=== PATIENT | male | born 1985 ===

== ENCOUNTER 2021-11-16 12:52 | Emergency (ER) | payer SELFPAY ==
[~2021-11-16] VITALS: Ht 165.1 cm; Wt 68.0 kg
--- NOTE | 2021-11-16 13:43 | ED Lower Extremity ---
General Chief Complaint: Lower Extremity Stated Complaint: R LEG PAIN Nursing Triage Note: PT AMB TO [facility] WITH COMPLAINT OF RIGHT GROIN/THIGH PAIN. PT IS ALSO COMPLAINING OF RASH Source: patient, family Exam Limitations: language barrier History of Present Illness Date Seen by Provider: Nov 16, 2021 Time Seen by Provider: 13:42 Initial Comments Patient is a 36-year-old male who is speaking presents ED with right leg pain. Leg pain right hip to right thigh and posterior leg. Started last Tuesday. 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 No specific trauma. No redness or bruising. Also reports rectal pain for the past few weeks. History of constipation. Pain with bowel movement but is having bowel movements. Denies any vomiting, abdominal pain, dysuria, hematuria, fever, chills. Denies taking pain for his leg pain. Allergies and Home Medications Patient Home Medication List Home Medication List Reviewed: Yes Cyclobenzaprine HCl (Cyclobenzaprine HCl) 10 Mg Tablet, 10 MG PO TID PRN for MUSCLE SPASMS Prescribed by: ALEXANDRA HUI on 11/16/211447 Docusate Sodium (Dulcolax Stool Softener) 100 Mg Capsule, 200 MG PO DAILY PRN for CONSTIPATION-1ST LINE Prescribed by: ALEXANDRA HUI on 11/16/21 144 Hydrocortisone (Anusol-Hc) 30 Gm Cream..g., 30 GM RC TID Prescribed by: ALEXANDRA HUI on 11/16/21 144 Naproxen (Naproxen) 500 Mg Tablet.dr, 500 MG PO BID Prescribed by: ALEXANDRA HUI on 11/16/21 1448 Review of Systems Constitutional: No chills, No diaphoresis, No fever, No malaise EENTM: No ear discharge, No hearing loss, No vision loss, No mouth pain Respiratory: No cough, No dyspnea on exertion Cardiovascular: No chest pain Gastrointestinal: No abdominal pain; constipation; No diarrhea, No nausea, No vomiting Genitourinary: No decreased output, No discharge Musculoskeletal: No back pain; joint pain, muscle pain Skin: No change in color, No change in hair/nails All Other Systems Reviewed Negative Unless Noted: Yes Past Tbjphpd-Dicgwx-Pzpran Hx Patient Social History Tobacco Use?: Yes Tobacco type used: Cigarettes Smoking Status: Current Everyday Smoker Use of E-Cig and/or Vaping dev: No Substance use?: No Alcohol Use?: No Pt feels they are or have been: No Immunizations Up To Date Influenza Vaccine Up-to-Date: Yes; Up-to-Date First/Initial COVID19 Vaccinat: 2020 Second COVID19 Vaccination Harris: 2020 Physical Exam Vital Signs Vital Signs - First Documented 11/16/21 13:19 Pulse 65 Resp 16 B/P (MAP) 138/81 (100) Pulse Ox 99 O2 Delivery Room Air Capillary Refill : Less Than 3 Seconds Height, Weight, BMI Height: '" Weight: lbs. oz. kg; 24.00 BMI Method: General Appearance: WD/WN, no apparent distress HEENT: PERRL/EOMI, normal ENT inspection, TMs normal, pharynx normal Neck: non-tender, full range of motion, supple Cardiovascular: regular rate, rhythm, no edema, no gallop, no JVD Respiratory: chest non-tender, lungs clear, normal breath sounds, no respiratory distress Gastrointestinal: normal bowel sounds, non tender, soft, no organomegaly, other (Nonthrombosed hemorrhoids noted to the anus) Hips: bilateral hip no evidence of injury; right hip bone tenderness, right hip pain Legs: right leg bone tenderness, right leg soft tissue tenderness Knees: bilateral knee non-tender, bilateral knee normal inspection, bilateral knee normal range of motion Ankles: bilateral ankle non-tender, bilateral ankle normal inspection, bilateral ankle normal range of motion Neurologic/Psychiatric: 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 Symptoms started last Arabella. 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 Reports strenuous activity. Denies of any falls. Reports some cramping pain, type pain in his thigh and hamstring. Likely more musculoskeletal. No right lateral hip or groin pain. Normal range of motion with pain into the right leg. X-ray of the right hip without strong evidence of fracture. Does show a small linear density along the superior lateral border of the acetabulum which is nonspecific. Unlikely avulsion fracture secondary to no fall or trauma. He is neurovascular intact. Ultrasound was negative for DVT. Refused any pain medication here. Does report some rectal pain over the past few weeks. Noted hemorrhoid without any thrombosis. Reports having bowel movements but noted it hurting. Will discharge with Anusol. GI outpatient follow-up. Will discharge with Dulcolax laxative. This is likely secondary to the strenuous activity at work. Provided work note. Orthopedic outpatient follow-up for the right leg. If any worsening pain to return back to ED for further evaluation Impression Primary Impression: Leg pain Disposition: HOME, SELF-CARE Condition: Stable Departure-Patient Inst. Decision time for Depature: 14:43 Referrals: NO,LOCAL PHYSICIAN (PCP) Primary Care Physician ACE CASTRO MD Patient Instructions: Leg Muscle Strain ED Scripts Hydrocortisone (Anusol-Hc) 30 Gm Cream..g. 30 GM RC TID, #1 EA Prov: [facility] RE[facility] 11/16/21 Docusate Sodium (Dulcolax Stool Softener) 100 Mg Capsule 200 MG PO DAILY PRN for CONSTIPATION-1ST LINE, #20 CAP Prov: [facility] 11/16/21 Cyclobenzaprine HCl (Cyclobenzaprine HCl) 10 Mg Tablet 10 MG PO TID PRN for MUSCLE SPASMS, #20 TAB Prov: [facility] RE[facility] 11/16/21 Naproxen (Naproxen) 500 Mg Tablet.dr 500 MG PO BID, #14 TAB Prov: [facility] 11/16/21 Work/School Note: Work Release Form Date Seen in the Emergency Department: Nov 16, 2021 Return to Work: Nov 23, 2021 [facility] Nov 16, 2021 13:43
--- NOTE | 2021-11-16 14:27 | Diagnostic Imaging Report ---
PROCEDURE: US right lower extremity venous. TECHNIQUE: Multiple real-time grayscale images were obtained over the right lower extremity in various projections. Additional spectral analysis and color Doppler duplex images were also obtained. INDICATION: Right leg pain EXAMINATION: Grayscale and color Doppler evaluation of the deep veins of the right lower extremity were performed with waveform analysis. FINDINGS: Continuous venous flow is present. No intraluminal filling defect is identified. There is normal compressibility and response to augmentation. No abnormal perivascular fluid collection is identified. IMPRESSION: No ultrasound evidence of right lower extremity deep venous thrombosis. Dictated by: Dictated on workstation # [id number]
--- NOTE | 2021-11-16 14:28 | Diagnostic Imaging Report ---
EXAMINATION: Right hip unilateral 2 or 3 views (w/pelvis when done). HISTORY: Right hip pain. COMPARISON: None available. FINDINGS: There is a small linear density adjacent to the superolateral border of the acetabulum which could represent an os acetabuli with a tiny avulsion fracture not excluded. The remaining osseous structures are intact with no dislocations. IMPRESSION: Small linear density along the superolateral border of the acetabulum, nonspecific. See above discussion. Dictated by: Dictated on workstation # [id number]
[2021-11-16] MEDS ORDERED: NAPR500T8 PO (14:48)
[2021-11-16] MEDS ORDERED: HYDR30CR71 RC (14:48)
[2021-11-16] MEDS ORDERED: CYCL10TA25 PO (14:48)
[2021-11-16] MEDS ORDERED: DOCU-163 PO (14:48)
[2021-11-16 14:54] VITALS: BP 133/80
== END 2021-11-16 14:54 | disposition home or self-care (01) ==
LOC: ER 12:56
DX: M79.661 Pain in right lower leg (principal); F17.210 Nicotine dependence, cigarettes, uncomplicated
CPT/HCPCS: 73502